=== PATIENT | male | born 1980 | race African-American/Black ===

== ENCOUNTER 2020-06-23 15:01 | Emergency (ER) | payer MEDICAID, SELFPAY ==
[2020-06-23 15:20] VITALS: BP 127/91; PULSE 85; RESP 18; TEMP 36.8; O2SAT 99
--- NOTE | 2020-06-23 15:23 | ED.GENADULT ---
HPI - General Adult General Chief complaint: Unspecified Stated complaint: sti check Time Seen by Provider: 06/23/20 15:22 Related Data Allergies Allergy/AdvReac Type Severity Reaction Status Date / Time Sulfa (Sulfonamide Allergy Intermediate Hives / Verified 10/31/18 00:43 Antibiotics) Red Face Course Vital Signs Vital signs: Vital Signs Temperature 36.8 C 06/23/20 15:20 Pulse Rate 85 06/23/20 15:20 Respiratory Rate 18 06/23/20 15:20 Blood Pressure 127/91 H 06/23/20 15:20 Pulse Oximetry 99 06/23/20 15:20 Temperature 36.8 C 06/23/20 15:20 Pulse Rate 85 06/23/20 15:20 Respiratory Rate 18 06/23/20 15:20 Blood Pressure 127/91 H 06/23/20 15:20 Pulse Oximetry 99 06/23/20 15:20 Medical Decision Making Vital Signs Vital Signs: Vital Signs Temperature 36.8 C 06/23/20 15:20 Pulse Rate 85 06/23/20 15:20 Respiratory Rate 18 06/23/20 15:20 Blood Pressure 127/91 H 06/23/20 15:20 Pulse Oximetry 99 06/23/20 15:20 Temperature 36.8 C 06/23/20 15:20 Pulse Rate 85 06/23/20 15:20 Respiratory Rate 18 06/23/20 15:20 Blood Pressure 127/91 H 06/23/20 15:20 Pulse Oximetry 99 06/23/20 15:20
--- NOTE | 2020-06-23 15:25 | ED.FEMALEGU ---
HPI - Female Genitourinary General Chief complaint: Unspecified Stated complaint: sti check Time Seen by Provider: 06/23/20 15:22 History of Present Illness HPI Narrative: Told by an x-girlfriend that she tested positive for syphilis. The have not had sexual contact for several months. In the mean time he has noted intermittent rashes to the hands and feet. Occasional difficulty urinating. No fever, chills, confusion, wounds, discharge. Related Data Allergies Allergy/AdvReac Type Severity Reaction Status Date / Time Sulfa (Sulfonamide Allergy Intermediate Hives / Verified 10/31/18 00:43 Antibiotics) Red Face Review of Systems Review of Systems: All systems reviewed & are unremarkable except as noted in HPI and below Cardiovascular: Cardiovascular: Denies chest pain Respiratory: Respiratory: Denies dyspnea Gastrointestinal: Gastrointestinal: Denies abdominal pain Integumentary/Breasts: Skin/Breast: Reports rash Neurologic: Denies confusion, Denies dizziness, Denies numbness and Denies weakness [facility] Past Medical History Medical History (Updated 06/24/20 @ 00:00 by Micah Mejia) Healthy adult Social History Social History (Updated 06/23/20 @ 16:40 by Mumtaz Sinclair MD) Gender identity (if verbalized by the patient): Male Sexual Orientation (if Verbalized by the Patient): Straight or Heterosexual Exam Const: General: no acute distress and alert Orientation/consciousness: patient oriented x3 HENMT: Head: normal to inspection Resp: Effort & Inspection: normal respiratory effort Auscultation: clear to auscultation bilaterally Cardio: Rate: regular rate Rhythm: regular rhythm GI: GI Palp: Yes Soft to palpation and No Tenderness to palpation present (GI) Skin: Other: patchy hyperpigmentation on the hands and feet Neuro: General: patient oriented x3, moves all extremities, no focal motor deficits and CN's II-XI intact bilaterally Speech: normal speech Gait exam (Neuro): Normal gait present Extrem: General: normal to inspection Course Vital Signs Vital signs: Vital Signs Temperature 36.8 C 06/23/20 15:20 Pulse Rate 85 06/23/20 15:20 Respiratory Rate 18 06/23/20 15:20 Blood Pressure 127/91 H 06/23/20 15:20 Pulse Oximetry 99 06/23/20 15:20 Temperature 36.8 C 06/23/20 15:20 Pulse Rate 85 06/23/20 15:20 Respiratory Rate 18 06/23/20 15:20 Blood Pressure 127/91 H 06/23/20 15:20 Pulse Oximetry 99 06/23/20 15:20 MDM - Female Genitourinary MDM Narrative Medical decision making narrative: I will treat for syphilis and possible coinfections Medical Records Attestation: I reviewed the patient's medical records. Lab Data Attestation: I reviewed the patient's lab results. Labs: Lab Results 06/23/20 06/23/20 06/23/20 Range/Units 15:54 15:55 15:55 RPR Non-reactive (NonReactive) C.trachomatis RNA (TMA) Cancelled HIV 1&2 Ab/P24 Ag 4thGn (Negative) N.gonorrhoeae RNA (TMA) Cancelled T. vaginalis Amp RNA Cancelled 06/23/20 Range/Units 15:55 RPR (NonReactive) C.trachomatis RNA (TMA) HIV 1&2 Ab/P24 Ag 4thGn Negative (Negative) N.gonorrhoeae RNA (TMA) T. vaginalis Amp RNA Discharge Plan Discharge Clinical Impression: Exposure to syphilis Patient Disposition: Home, Self-Care Condition: Stable Instructions: Antibiotic Form, Sexually Transmitted Diseases (ED), Syphilis (ED) Follow-up/Referrals: Thais Prado MD [Physician] - PHYSICIAN,SLIP COVER OPERATOR [Primary Care Provider] -
[2020-06-23] MEDS: PENICILLIN G BENZATHINE 2,400,000 UNITS/4 ML SYRINGE 2400000 UNITS IM (16:04)
[2020-06-23] MEDS: cefTRIAXone 250 MG VIAL IM (16:41)
[2020-06-23] MEDS: AZITHROMYCIN 250 MG TABLET 1000 MG PO (16:41)
[2020-06-23 17:05] LABS: HIV 1/2 Ab P24 Ag Result Negative (Negative)
[2020-06-25 12:29] LABS: Rapid Plasma Reagin Non-Reactive (NonReactive)
== END 2020-06-23 17:15 | disposition home or self-care (01) ==
PROVIDERS: Emergency Provider Emergency Medicine
DX: Z20.2 Contact with and (suspected) exposure to infections with a predominantly sexual mode of transmission (principal)
CPT/HCPCS: 36415; 86592; 86703; 87491; 87591; 87661; 96372; 99284; A9270; G0432; J0561; J0696

== ENCOUNTER 2021-04-03 08:11 | Emergency (ER) | payer OTHER, BC, SELFPAY ==
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
[2021-04-03 08:13] VITALS: BP 159/101; PULSE 82; RESP 18; TEMP 37.3; O2SAT 96
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
[2021-04-03] MEDS: IBUPROFEN 600 MG TABLET PO (08:37)
[2021-04-03 09:26] VITALS: BP 151/110; PULSE 80; RESP 18; O2SAT 100
== END 2021-04-03 09:31 | disposition home or self-care (01) ==
PROVIDERS: Emergency Provider Emergency Medicine
DX: S80.02XA Contusion of left knee, initial encounter (principal); S70.01XA Contusion of right hip, initial encounter; F17.200 Nicotine dependence, unspecified, uncomplicated; M16.0 Bilateral primary osteoarthritis of hip; V43.62XA Car passenger injured in collision with other type car in traffic accident, initial encounter
CPT/HCPCS: 73502; 73564; 99284; A9270

== ENCOUNTER 2021-10-15 09:40 | Emergency (ER) | payer BC, SELFPAY ==
--- NOTE | ~2021-10-15 | CT_ITS ---
EXAMINATION: CT abdomen pelvis w con DATE: 10/15/2021 12:56 INDICATION: Low abdominal pain. Diarrhea. TECHNIQUE: Computed tomography (CT) of the abdomen and pelvis was performed with 100 mL Omnipaque 350 intravenous contrast. Automated exposure control and iterative reconstruction technique were employe d. The dose-length product was 760.06 mGy-cm. COMPARISON: None. FINDINGS: The visualized portions of the lung bases demonstrate mild atelectasis. No pleural effusion . The heart size is normal. No pericardial effusion. There is diffuse hepatic steatosis. The liver, g allbladder, pancreas, adrenal glands, and kidneys are normal. There are no dilated loops of bowel. Th e appendix is normal. There are no pathologically enlarged lymph nodes. There is no free intraperiton eal fluid. There is severe lower lumbar spondylosis. IMPRESSION: 1. No etiology for the patient's symptoms. Reviewed, dictated and finalized at location A. IC RELATIONS WRITER
[2021-10-15 09:45] VITALS: BP 137/84; PULSE 77; RESP 18; TEMP 36.2; O2SAT 100
[2021-10-15 10:30] VITALS: RESP 18; O2SAT 100
[2021-10-15 10:45] VITALS: BP 133/88; PULSE 55; RESP 14; O2SAT 97
[2021-10-15 11:41] LABS: Basophils Percent Auto 0.7 % (0.2-1.2); Eosinophils Absolute Auto 0.2 K/mm3 (0-0.3); Eosinophils Percent Auto 3.6 % (0-4.4); Hematocrit 43.8 % (42.0-52.0); Hemoglobin 14.7 g/dL (14.0-18.0); Immature Granulocyte Absolute 0.02 K/mm3 (0.00-0.031); Immature Granulocyte Percent A 0.4 % (0-0.5); Lymphocytes Absolute Auto 1.61 K/mm3 (0.9-3.2); Lymphocytes Percent Auto 28.7 % (18.3-44.2); Mean Corpuscular HGB Conc 33.6 g/dl (32-36); Mean Corpuscular Hemoglobin 27.1 pg (26-34); Mean Corpuscular Volume 80.8 fl (80-100); Monocytes Absolute Auto 0.6 K/mm3 (0.1-0.6); Monocytes Percent Auto 11.1 % (2.6-8.5); Neutrophils Absolute Auto 3.1 K/mm3 (1.3-6.7); Neutrophils Percent Auto 55.5 % (45.5-73.1); Platelet Count Result 255 k/mm3 (150-375); Red Blood Count 5.42 M/mm3 (4.6-6.20); Red Cell Distribution Width 13.9 % (11.5-14.5); White Blood Count 5.6 K/mm3 (4.5-10.0)
[2021-10-15 11:45] VITALS: BP 135/80; PULSE 88; RESP 14; O2SAT 97
[2021-10-15 11:51] LABS: Add Urine Microscopic? YES; Appearance Urine Cloudy (Clear); Bilirubin Urine Negative (Negative); Blood Urine Negative (Negative); Color Urine Yellow (Yellow); Glucose Urine UA Negative (Negative); Ketones Urine Negative (Negative); Leukocyte Esterase Ur Negative LEU/UL (Negative); Mucus Urine Few /lpf; Nitrate Urine Negative (Negative); Protein Urine Negative (Negative); RBC Urine 0-2 /hpf (0-2); Squamous Epithelial Cell Urine Few /hpf (Few); Urobilinogen Urine Negative mg/dL (<2.0); WBC Urine 0-3 /hpf
[2021-10-15 11:53] LABS: Alanine Aminotransferase 31 U/L (4-50); Albumin Level 4.6 g/dL (3.5-5.1); Alkaline Phosphatase 58 U/L (38-126); Anion Gap 4 mmol/L (8-16); Aspartate Amino Transferase 29 U/L (17-59); Bilirubin,Total 0.6 mg/dL (0.2-1.3); Blood Urea Nitrogen 14 mg/dL (9-20); Calcium 8.9 mg/dL (8.4-10.2); Carbon Dioxide 29 mmol/L (22-30); Chloride 106 mmol/L (98-107); Estimated CRCL calculation 79 ml/min; Estimated Glomerular Filt Rate > 60; Glucose 97 mg/dL (65-110); Lipase 90 U/L (23-300); Potassium 4.3 mmol/L (3.4-5.0); Sodium 139 mmol/L (137-145)
--- NOTE | 2021-10-15 12:35 | ED.GENADULT ---
HPI - General Adult General Chief complaint: Unspecified Stated complaint: mucus in stool/pain near rectum Time Seen by Provider: 10/15/21 10:43 Source: patient Mode of arrival: ambulatory Limitations: no limitations History of Present Illness HPI narrative: This is a 41 year old male that presents to the ER for rectal pain ongoing over the last couple of days. Associated with loose stools with mucus. Also reports some lower abdominal discomfort. Denies fever, vomiting, or hematuria. Related Data Allergies Allergy/AdvReac Type Severity Reaction Status Date / Time Sulfa (Sulfonamide Allergy Intermediate Hives / Verified 04/03/21 08:21 Antibiotics) Red Face Review of Systems Review of Systems: CONSTITUTIONAL: Denies fever GASTROINTESTINAL: Reports abdominal pain, and diarrhea. Denies nausea, GENITOURINARY: Denies dysuria or hematuria. All systems reviewed & are unremarkable except as noted in HPI and below PMFSH Past Medical History Medical History (Updated 10/15/21 @ 13:49 by Maribeth Cabello PA-C) Healthy adult Patient denies significant medical history Social History Social History (Updated 04/03/21 @ 08:24 by Keenan Sen DO) Smoking status: Current every day smoker Gender identity (if verbalized by the patient): Male Sexual Orientation (if Verbalized by the Patient): Straight or Heterosexual Exam Narrative: GENERAL: Well-appearing, well-nourished, and in no acute distress. HEAD: Normocephalic, atraumatic. EYES: EOMI. CHEST: Clear to auscultation. No respiratory distress. No wheezes rales or rhonchi HEART: Regular rate and rhythm. No murmur heard. Normal peripheral pulses. ABDOMEN: Soft, nontender, nondistended, normal active bowel sounds. EXTREMITIES: Normal range of motion. No edema. SKIN: Warm, dry, no rash. NEURO: No focal deficits. Alert and oriented x3. PSYCH: Normal mood and affect RECTAL: No rashes or lesions noted. No obvious hemorrhoids or fissures. No bleeding noted Course Vital Signs Vital signs: Vital Signs Temperature 97.1 F L 10/15/21 09:45 Pulse Rate 77 10/15/21 09:45 Respiratory Rate 18 10/15/21 09:45 Blood Pressure 137/84 10/15/21 09:45 Pulse Oximetry 100 10/15/21 09:45 Temperature 97.1 F L 10/15/21 09:45 Pulse Rate 88 10/15/21 11:45 Respiratory Rate 14 10/15/21 11:45 Blood Pressure 135/80 10/15/21 11:45 Pulse Oximetry 97 10/15/21 11:45 Medical Decision Making MDM Narrative Medical decision making narrative: Patient presents to the emergency department for lower abdominal pain and rectal pain. He is afebrile and nontoxic-appearing. His vitals are stable. CBC and metabolic panel without concerning findings. Lipase is normal. UA without evidence of infection. CT scan of the abdomen and pelvis is without acute findings. Patient was updated on case findings. He is stable and felt appropriate for further outpatient evaluation. Instructed to follow-up with primary care doctor. He was given warnings to return to the ER Vital Signs Vital Signs: Vital Signs Temperature 97.1 F L 10/15/21 09:45 Pulse Rate 77 10/15/21 09:45 Respiratory Rate 18 10/15/21 09:45 Blood Pressure 137/84 10/15/21 09:45 Pulse Oximetry 100 10/15/21 09:45 Temperature 97.1 F L 10/15/21 09:45 Pulse Rate 88 10/15/21 11:45 Respiratory Rate 14 10/15/21 11:45 Blood Pressure 135/80 10/15/21 11:45 Pulse Oximetry 97 10/15/21 11:45 Lab Data Lab results reviewed: Yes I reviewed the patient's lab results. Result diagrams: 10/15/21 11:33 10/15/21 11:33 Labs: Lab Results 10/15/21 10/15/21 10/15/21 Range/Units 11:33 11:33 11:33 WBC 5.6 (4.5-10.0) K/mm3 RBC 5.42 (4.6-6.20) M/mm3 Hgb 14.7 (14.0-18.0) g/dL Hct 43.8 (42.0-52.0) % MCV 80.8 (80-100) fl MCH 27.1 (26-34) pg MCHC 33.6 (32-36) g/dl RDW 13.9 (11.5-14.5) % Plt Count 255 (150-375) k/mm3 MPV 1
[2021-10-15 14:04] VITALS: BP 158/98; PULSE 68; RESP 18; O2SAT 100
== END 2021-10-15 14:06 | disposition home or self-care (01) ==
PROVIDERS: Physician Assistant; Emergency Provider Emergency Medicine
DX: K62.89 Other specified diseases of anus and rectum (principal); F17.200 Nicotine dependence, unspecified, uncomplicated
CPT/HCPCS: 36415; 74177; 80053; 81001; 83690; 85025; 99284; Q9967